=== PATIENT | male | born 1960 | race Caucasian/White ===

== ENCOUNTER 2017-12-29 11:27 | Emergency (ER) | payer SELFPAY, OTHER, MEDICAID ==
[2017-12-29] MEDS: IBUPROFEN 600 MG TAB PO (16:14)
[2017-12-29] MEDS: CEPHALEXIN 500 MG CAP PO (16:14)
[2017-12-29] MEDS: TRIMETHOPRIM/SULFAMETHOX (DS) TAB PO (16:14)
== END 2017-12-29 16:51 | disposition home or self-care (01) ==
LOC: E/R 11:27
DX: L03.114 Cellulitis of left upper limb (principal); Z87.891 Personal history of nicotine dependence
CPT/HCPCS: 99284

== ENCOUNTER 2018-01-28 06:51 | Emergency (ER) | payer SELFPAY | END 2018-01-28 14:12 | disposition left against medical advice (07) | LOC: E/R 06:51 | DX: Z53.21 Procedure and treatment not carried out due to patient leaving prior to being seen by health care provider (principal) ==